=== PATIENT | female | born 1945 | race Caucasian/White ===

== ENCOUNTER 2017-03-22 12:19 | Emergency (ER) | END 2017-03-22 18:03 | disposition home or self-care (01) ==

== ENCOUNTER 2017-10-31 12:52 | Emergency (ER) | END 2017-10-31 17:00 | disposition home or self-care (01) ==

== ENCOUNTER 2018-01-20 11:23 | Emergency (ER) | END 2018-01-20 14:43 | disposition home or self-care (01) ==

== ENCOUNTER 2018-10-26 14:13 | Emergency (ER) | payer MEDICARE, BC ==
[~2018-10-26] VITALS: Wt 47.4 kg
[~2018-10-26 14:13] MED LIST: ALPR0.254 PO; AMLO2.5T78 PO; CHOL100062 PO; CYAN-23 PO; DENO60DI SQ; DICL100G37 TOP; DULO60CA59 PO; ERGO500013 PO; FAMO-96 PO; FOLI-49 PO; FOLI1TAB5 PO; IBUP-1542 PO; IBUP-1561 PO; ICOS1CAP PO; LINA145C PO; LISI-471 PO; LUBI24CA7 PO; LYRI100 PO; MET25 PO; METO10TA92 PO; NAPR-985 PO; NEBI10TA2 PO; OMEP40CA6 PO; PHEN-537 PO; PITA2TAB PO; RIFA550T4 PO; SECU150P SQ; SERT25TA83 PO; SUCR1TAB56 PO; VIT1TABL46 PO; [UNRECOGNIZED DRUG - CODE] PO
[2018-10-26] MEDS ORDERED: KETOROLAC 15 MG INJ IV STA (14:32)
[2018-10-26] MEDS ORDERED: SOD CHLORIDE 0.9% 1,000 ML IV ONE (15:00)
[2018-10-26 17:13] VITALS: BP 142/76; PULSE 67; RESP 16
== END 2018-10-26 17:15 | disposition home or self-care (01) ==
LOC: E/R 14:13
DX: D64.9 Anemia, unspecified (principal); R10.30 Lower abdominal pain, unspecified; I10 Essential (primary) hypertension; I25.10 Atherosclerotic heart disease of native coronary artery without angina pectoris
CPT/HCPCS: 36415; 74176; 80053; 81001; 83690; 85025; 96361; 96374; 99285; J1885

== ENCOUNTER 2019-01-08 11:55 | Emergency (ER) | payer MEDICARE, BC ==
[~2019-01-08] VITALS: Wt 48.9 kg
[~2019-01-08 11:55] MED LIST changes: -ALPR0.254 PO; -CHOL100062 PO; -DENO60DI SQ; -DICL100G37 TOP; -DULO60CA59 PO; -FAMO-96 PO; -FOLI1TAB5 PO; -IBUP-1542 PO; -IBUP-1561 PO; +LIDO700A29 TP; -LUBI24CA7 PO; +MELO7.5T38 PO; -METO10TA92 PO; -NEBI10TA2 PO; +OMEP40CA38 PO; -OMEP40CA6 PO; -PITA2TAB PO; -RIFA550T4 PO; -SECU150P SQ; -SUCR1TAB56 PO; -VIT1TABL46 PO; -[UNRECOGNIZED DRUG - CODE] PO
[2019-01-08 12:33] VITALS: BP 135/69; PULSE 111; RESP 20
[2019-01-08] MEDS ORDERED: HYDROmorphONE 0.5 MG/0.5 ML SYG IM STA (13:06)
[2019-01-08] MEDS ORDERED: IBUPROFEN 600 MG TAB PO ONE (13:30)
[2019-01-08] MEDS ORDERED: ALPRAZOLAM 0.25 MG TAB PO ONE (13:30)
== END 2019-01-08 14:05 | disposition home or self-care (01) ==
LOC: E/R 11:55
DX: M19.012 Primary osteoarthritis, left shoulder (principal); I10 Essential (primary) hypertension; I25.10 Atherosclerotic heart disease of native coronary artery without angina pectoris
CPT/HCPCS: 73030; 96372; 99284; J1170